=== PATIENT | female | born 1990 | race Caucasian/White ===

== ENCOUNTER 2016-08-22 16:59 | Emergency (ER) | payer OTHER ==
[2016-08-22 17:12] VITALS: BP 105/73; PULSE 99; RESP 18; TEMP 98.4; O2SAT 99
[2016-08-22] MEDS ORDERED: Sodium Chloride 0.9% 1,000 ML IV STA (17:37)
--- NOTE | 2016-08-22 17:45 | ED PDOC ---
Arrival/HPI - General Chief Complaint: GI Problem Time Seen by Provider: 08/22/16 17:22 Historian: Patient - History of Present Illness Narrative History of Present Illness (Text): 08/22/16 17:43 26 year old female, 28 weeks , presents to the emergency department with abdominal pain and vomiting since yesterday. Denies vaginal bleeding, vaginal discharge, fever. Patient states she feels the baby moving normally. no lof, (+)fm 08/22/16 20:54 Time/Duration: 24 hours Symptom Onset: Gradual Symptom Course: Unchanged Modifying Factors (Text): None Associated Symptoms (Text): None Past Medical History - Provider Review Nursing Documentation Reviewed: Yes - Infectious Disease Hx of Infectious Diseases: None - Psychiatric Hx Substance Use: No Family/Social History - Physician Review Nursing Documentation Reviewed: Yes Family/Social History: Unknown Family HX Smoking Status: Never Smoked Hx Alcohol Use: No Hx Substance Use: No Allergies/Home Meds Allergies/Adverse Reactions: Allergies No Known Allergies Allergy (Verified 08/22/16 17:12) Review of Systems - Physician Review All systems were reviewed & negative as marked: Yes - Review of Systems Constitutional: absent: Fevers Gastrointestinal: Abdominal Pain, Vomiting. absent: Diarrhea Genitourinary Female: absent: Vaginal Bleeding, Vaginal Discharge Physical Exam Vital Signs Reviewed: Yes Vital Signs Temp Pulse Resp BP Pulse Ox 08/22/16 17:05 98.4 F 99 H 18 105/73 99 Temperature: Afebrile Blood Pressure: Normal Pulse: Regular Respiratory Rate: Normal Appearance: Positive for: Well-Appearing, Non-Toxic, Comfortable Pain Distress: None Mental Status: Positive for: Alert and Oriented X 3 - Systems Exam Head: Present: Atraumatic, Normocephalic Pupils: Present: PERRL Extroacular Muscles: Present: EOMI Conjunctiva: Present: Normal Mouth: Present: Moist Mucous Membranes Neck: Present: Normal Range of Motion Respiratory/Chest: Present: Clear to Auscultation, Good Air Exchange. No: Respiratory Distress, Accessory Muscle Use Cardiovascular: Present: Regular Rate and Rhythm, Normal S1, S2. No: Murmurs Abdomen: Present: Tenderness (Epigastric), Normal Bowel Sounds. No: Distention , Peritoneal Signs Back: Present: Normal Inspection Upper Extremity: Present: Normal Inspection. No: Cyanosis, Edema Lower Extremity: Present: Normal Inspection. No: Edema Neurological: Present: GCS=15, CN II-XII Intact, Speech Normal Skin: Present: Warm, Dry, Normal Color. No: Rashes Psychiatric: Present: Alert, Oriented x 3, Normal Insight, Normal Concentration Medical Decision Making ED Course and Treatment: Impression: 26 year old female, 28 weeks , presents with abdominal pain and vomiting since yesterday. Differential Diagnosis include but are not limited to: Plan: -- Zofran, IV fluids -- Labs -- US age -- Reassess and disposition Progress Notes: EXAM: US Abdomen Limited, Right Upper Quadrant FINDINGS: Liver: Unremarkable. No mass. No intrahepatic bile duct dilation. Gallbladder: Cholelithiasis. Technologist reports a positive Wade sign. However the gallbladder wall is normal and there is no gross gallbladder dilatation. No definite evidence of acute cholecystitis, however clinical correlation recommended. If clinical suspicion is high, a HIDA scan can be performed. Common bile duct: Unremarkable as visualized. No stones. No dilation. Pancreas: Pancreas not well evaluated secondary to bowel gas. Right kidney: Right kidney demonstrates mild collecting system fullness versus mild hydronephrosis. IMPRESSION: 1. Cholelithiasis. Technologist reports a positive Wade sign. However the gallbladder wall is normal and there is no gross gallbladder dilatation. No definite evidence of acute cholecystitis, however clinical correlation recommended. If clinical suspicion is high, a HIDA scan can be performed. 2. Right kidney demonstrates mild collecting system fullness versus mild hydronephrosis. Dictated and Authenticated by: Bill Grady MD 08/22/2016 7:32 PM Eastern Time ([place] & [place]) EXAM: US After First Trimester, Transabdominal FINDINGS: Fetus: Arboleda viable is present. The weight estimate is 1164 g #2 lbs. 9 oz., 74th percentile. Heart rate: heart rate is 137 beats per minute. Presentation: presentation is cephalic. Placenta: Placenta anterior without previa or abruption. Amniotic fluid: The amniotic fluid index is 16.5 cm. Anatomy: Visualized anatomy is limited but unremarkable. BIOMETRICS Gestational age by US: Gestational age by sonogram is 28 weeks 4 days, LMP 27 weeks 1 day. RAMSEY by sonogram 11/10/2016. EFW: 1164 g. 2 lbs. 9 oz., 74th percentile. MATERNAL: Uterus: Unremarkable. No myometrial mass. Cervix: Unremarkable as visualized. Closed. Free fluid: No free fluid. IMPRESSION: Arboleda viable is present in cephalic presentation, 28 weeks 4 days gestation. Dictated and Authenticated by: Hector Flowers MD 08/22/2016 7:44 PM Eastern Time ([place] & [place]) 08/22/16 20:54 ntoed us reading equioval for cholecytitis. low suspicion, no leukocytosis, no fever, no wall thickening, however not entirely excluded. also pt with us shows fhr, however pt will need nst testing as per [facility], not available here case discussed with dr manrique at [place]. states pt will need obgyn eval for NST at [place], not available at [place]. requests transfer to [place]. pt declines transfer, and now states she wishes to go home. pt understnading risks, signs AMA. Leaving Against Medical Advice (AMA): The patient is choosing to leave against medical advice. I have personally explained to the patient that choosing to do so may result in permanent bodily harm or . I have discussed at great length that without further evaluation and monitoring there may be unforeseen circumstances and/or deterioration causing permanent bodily harm or as a result of their choice. The patient is alert, oriented, and shows the mental capacity to make clear decisions regarding the patients health care at this time. The patient continues to wish to leave against medical advice. The patient has been advised that they should return to the emergency room immediately if they change their mind at any time, or if their condition begins to change or worsen in any way. 08/22/16 21:00 - Lab Interpretations Lab Results: 08/22/16 19:32 08/22/16 19:32 Lab Results 08/22/16 19:40: Urine Color Yellow, Urine Appearance Turbid, Urine pH 6.5, Ur Specific [place] 1.020, Urine Protein Trace H, Urine Glucose (UA) Negative, Urine Ketones 40 H, Urine Blood Small H, Urine Nitrate Negative, Urine Bilirubin Small H, Urine Urobilinogen 0.2, Ur Leukocyte Esterase Small H, Urine RBC 1 - 3, Urine WBC 5 - 10, Ur Epithelial Cells 6 - 8, Urine Bacteria Mod, Urine HCG, Qual Positive 08/22/16 19:32: WBC 8.1, RBC 3.29 L, Hgb 9.3 L, Hct 27.7 L, MCV 84.2, MCH 28.3, MCHC 33.6, RDW 13.4, Plt Count 314, MPV 10.6, Gran % 69.1 H, Lymph % (Auto) 20.3 L, [place] % (Auto) 8.8 H, Eos % (Auto) 1.4 L, Baso % (Auto) 0.4, Gran # 5.59 , Lymph # 1.6, [place] # 0.7 H, Eos # 0.1, Baso # 0.03, PT 10.3, INR 0.95, APTT 26.9, Sodium 136, Potassium 3.3 L, Chloride 103, Carbon Dioxide 24, Anion Gap 12 , BUN 8, Creatinine 0.5, Est GFR ( Amer) > 60, Est GFR (Non-Af Amer) > 60 , Random Glucose 66 L, Calcium 8.9, Total Bilirubin 0.7, AST 29, ALT 40, Alkaline Phosphatase 123, Total Protein 7.4, Albumin 3.7, Globulin 3.6, Albumin/ Globulin Ratio 1.0 L, Lipase 71, Beta HCG, Quant 80667.00 H - RAD Interpretation Radiology Orders: 08/22/16 17:41 AGE [US] Stat 08/22/16 18:02 GALL BLADDER [US] Stat - Medication Orders Current Medication Orders: Discontinued Medications Acetaminophen (Tylenol 325mg Tab) 650 mg PO STAT STA Stop: 08/22/16 20:25 Last Admin: 08/22/16 20:40 Dose: 650 MG MAR Pain/Vitals Document 08/22/16 20:40 SS (Rec: 08/22/16 20:41 SS [id number]) Pain Reassessment Is This A Pain ReAssessment? No Sleep Is patient sleeping during reassessment? No Presence of Pain Presence of Pain Yes Pain Scale Used Pain Scale Used Numeric Location Pain Location Body Site Abdomen Description Constant Intensity 6 Scale Used Numeric Sodium Chloride (Sodium Chloride 0.9%) 1,000 mls @ 999 mls/hr IV .Q1H1M STA Stop: 08/22/16 18:37 Last Admin: 08/22/16 19:44 Dose: 999 MLS/HR eMAR Start Stop Document 08/22/16 19:44 SS (Rec: 08/22/16 19:46 SS [id number]) Intravenous Solution Start Date 08/22/16 Start Time 19:46 End Date 08/22/16 End time 20:46 Total Infusion Time 60 Ondansetron HCl (Zofran Inj) 4 mg IVP STAT STA Stop: 08/22/16 17:43 Last Admin: 08/22/16 19:44 Dose: 4 MG IVP Administration Document 08/22/16 19:44 SS (Rec: 08/22/16 19:44 SS [id number]) Charges for Administration # of IVP Administrations 1 - Scribe Statement The provider has reviewed the documentation as recorded by the Annemarie Rincon Provider Scribe Attestation: All medical record entries made by the Angeloibe were at my direction and personally dictated by me. I have reviewed the chart and agree that the record accurately reflects my personal performance of the history, physical exam, medical decision making, and the department course for this patient. I have also personally directed, reviewed, and agree with the discharge instructions and disposition. Disposition/Present on Arrival - Present on Arrival Any Indicators Present on Arrival: No History of DVT/PE: No History of Uncontrolled Diabetes: No Urinary Catheter: No History of Decub. Ulcer: No History Surgical Site Infection Following: None - Disposition Have Diagnosis and Disposition been Completed?: Yes Diagnosis: Abdominal pain, Cholelithiasis Disposition: AGAINST MEDICAL ADVICE Disposition Time: 20:56 Condition: UNKNOWN Discharge Instructions (ExitCare): Threatened Miscarriage (ED), Biliary Colic ( ED), Gallstones (ED), Urinary Tract Infection in (ED) Additional Instructions: please follow up with your doctor/clinic and specialist. return to er with worsening symptoms or concerns. Prescriptions: Cefpodoxime [Vantin] 100 mg PO BID #14 tab Referrals: Izaiah Valles MD [Staff Provider] - Follow up with primary Miryam Dudley MD [Staff Provider] - Follow up with primary
[2016-08-22 19:38] LABS: ADD MANUAL DIFF? NO
[2016-08-22 19:42] LABS: BASO # 0.03 K/mm3 (0.0-2.0); BASO % 0.4 % (0.0-3.0); EOS # 0.1 (0.0-0.7); EOS % 1.4 % (1.5-5.0); GRAN # 5.59 (1.4-6.5); GRAN % 69.1 % (50.0-68.0); HEMATOCRIT 27.7 % (36.0-48.0); LYMPH # 1.6 (1.2-3.4); LYMPH % 20.3 % (22.0-35.0); MEAN CELL VOLUME 84.2 fL (80.0-105.0); MEAN CORPUSCULAR HEMOGLOBIN 28.3 pg (25.0-35.0); MEAN CORPUSCULAR HGB CONC 33.6 g/dl (31.0-37.0); MEAN PLATELET VOLUME 10.6 fl (7.0-11.0); MONO # 0.7 (0.1-0.6); MONO % 8.8 % (1.0-6.0); PLATELET COUNT 314 10^3/uL (120.0-450.0); RED CELL DISTRIBUTION WIDTH 13.4 % (11.5-14.5); WHITE BLOOD COUNT 8.1 10^3/ul (4.5-11.0)
[2016-08-22 19:46] LABS: PH,URINE 6.5 (4.7-8.0); URINE BILIRUBIN SMALL (NEGATIVE); URINE BLOOD SMALL (NEGATIVE); URINE GLUCOSE (UA) NEGATIVE (NEGATIVE); URINE KETONE 40 mg/dL (NEGATIVE); URINE LEUKOCYTE ESTERASE SMALL Leu/uL (NEGATIVE); URINE PROTEIN TRACE mg/dL (<30 mg/dL); URINE UROBILINOGEN 0.2 E.U./dL (<1 E.U./dL)
[2016-08-22 19:49] LABS: URINE APPEARANCE TURBID (CLEAR); URINE COLOR YELLOW (YELLOW)
[2016-08-22 19:54] LABS: INR 0.95 (0.93-1.08); PARTIAL THROMBOPLASTIN TIME 26.9 Seconds (23.7-30.8)
[2016-08-22 19:59] LABS: BLOOD UREA NITROGEN 8 mg/dL (7-21); CHLORIDE 103 mmol/L (98-107); GFR AFRICAN-AMERICAN > 60; GLUCOSE,RANDOM 66 mg/dL (70-110); POTASSIUM 3.3 mmol/L (3.6-5.0); SODIUM 136 mmol/L (132-148)
[2016-08-22 20:00] LABS: ALKALINE PHOSPHATASE 123 U/L (38-133); ALT/SGPT 40 U/L (7-56); AST/SGOT 29 U/L (15-39); BILIRUBIN,TOTAL 0.7 mg/dL (0.2-1.3); CALCIUM 8.9 mg/dL (8.4-10.5); CARBON DIOXIDE 24 mmol/L (21-33); LIPASE 71 U/L (23-300); TOTAL PROTEIN 7.4 g/dL (5.8-8.3)
[2016-08-22 20:23] LABS: URINE BACTERIA MOD (NEG)
--- NOTE | 2016-08-23 10:39 | US ---
PROCEDURE: Obstetrical ultrasound examination HISTORY: abd pain and COMPARISON: Not available TECHNIQUE: Transabdominal FINDINGS: Limited obstetrical ultrasound examination was performed. A single live intrauterine gestation is identified in cephalic presentation. cardiac activity is observed. The heart rate is 137 beats per minute. A normal anterior placenta is identified. There is no evidence of placenta previa. Please note that there are no images of the cervix submitted. biometry yields gestational age by ultrasound of 28 weeks 4 days. RAMSEY by ultrasound is 11/10/2016. The EFW is 1164 g. Normal quantity of amniotic fluid is visualized. The ANITA is 16.53 cm. Grossly limited anatomic evaluation. The ovaries were not visualized. No free fluid was seen within the pelvis. IMPRESSION: Single live intrauterine gestation in cephalic presentation. heart rate 137 beats per minute. Normal amniotic fluid volume. Anterior placenta. No previa. Grossly limited anatomic evaluation. Preliminary interpretation of this examination was reported by [facility] at 7:44 p.m. on 08/22/2016. There is concurrence of this report with the preliminary interpretation.
--- NOTE | 2016-08-23 10:42 | US ---
HISTORY: upper abd pain COMPARISON: None. TECHNIQUE: Sonographic evaluation of the right upper quadrant of the abdomen. FINDINGS: LIVER: Measures 15.2 cm in length. Normal echogenicity of the liver parenchyma. No mass. No intrahepatic bile duct dilatation. GALLBLADDER: Cholelithiasis. No mural thickening. No pericholecystic fluid. Positive sonographic Wade's sign. Findings are equivocal for cholecystitis. COMMON BILE DUCT: Measures 5 mm. No stones. No dilatation. PANCREAS: Poorly visualized due to overlying bowel gas. RIGHT KIDNEY: Measures 10.6 cm in length. Normal cortical echogenicity. No calculus or mass. Mild fullness of the collecting system, possibly very mild hydronephrosis. AORTA: No aneurysmal dilatation. IVC: Unremarkable. OTHER FINDINGS: None . IMPRESSION: Cholelithiasis. Positive sonographic Wade's sign. No mural thickening or pericholecystic fluid. Equivocal findings for cholecystitis. Minimal hydronephrosis of the right kidney.
[2016-08-27 17:07] LABS: BILE ACIDS, TOTAL 8 umol/L (0-19)
== END 2016-08-22 21:27 | disposition left against medical advice (07) ==
LOC: ED 16:59
DX: O99.613 Diseases of the digestive system complicating pregnancy, third trimester (principal); K80.20 Calculus of gallbladder without cholecystitis without obstruction; O26.893 Other specified pregnancy related conditions, third trimester; R10.9 Unspecified abdominal pain; Z3A.28 28 weeks gestation of pregnancy
CPT/HCPCS: 76705; 76815; 80053; 81001; 82239; 83690; 84702; 84703; 85025; 85610; 85730; 96361; 96374; 99284; J2405; J7040